=== PATIENT | male | born 1965 | race Two or more races ===

== ENCOUNTER 2022-12-28 01:38 | Emergency (ER) | payer OTHER ==
[~2022-12-28] VITALS: Ht 177.8 cm; Wt 125.0 kg
[2022-12-28 02:07] VITALS: BP 134/88
[2022-12-28] MEDS ORDERED: IBUPROFEN 400MG TABLET PO ONE (02:45)
[2022-12-28] MEDS ORDERED: NEOM28.43 TP (02:48)
[2022-12-28] MEDS ORDERED: CYCL5TAB MT (02:48)
== END 2022-12-28 03:57 | disposition home or self-care (01) ==
LOC: ER 01:38
DX: M25.512 Pain in left shoulder (principal); M25.562 Pain in left knee; M25.561 Pain in right knee; M79.642 Pain in left hand; I10 Essential (primary) hypertension
CPT/HCPCS: 73100; 73560; 99284

== ENCOUNTER 2024-12-18 17:10 | Inpatient (IN) | payer OTHER ==
[~2024-12-18] VITALS: Ht 165.1 cm; Wt 118.8 kg
[~2024-12-18 17:10] MED LIST: CYCL5TAB3 MT; NEOM28.43 TP
[2024-12-18 18:19] LABS: BASOPHILS % 1.6 % (0.0-2.0); EOSINOPHILS % 3.3 % (0.0-5.0); HEMATOCRIT. 42.3 % (42.0-52.0); HEMOGLOBIN. 14.9 g/dL (14.0-18.0); LYMPHOCYTES % 50.4 % (20.0-50.0); MEAN CORPUSCULAR HEMOGLOBIN 32.7 pg (28.0-32.0); MEAN CORPUSCULAR HGB CONC 35.2 g/dL (31.0-37.0); MEAN CORPUSCULAR VOLUME 93.1 fL (80.0-94.0); MEAN PLATELET VOLUME 8.7 fl (7.4-10.4); MONOCYTES % 9.4 % (2.0-8.0); NEUTROPHILS % 35.3 % (40.0-76.0); PLATELET 248 x1000/uL (130-400); RED BLOOD CELL COUNT 4.55 mill/uL (4.7-6.1); RED CELL DISTRIBUTION WIDTH 13.2 % (11.6-14.6); WHITE BLOOD COUNT 4.7 x1000/uL (4.5-11.0)
[2024-12-18 18:38] LABS: CHLORIDE 104 mEq/L (98-107); POTASSIUM 3.3 mEq/L (3.5-5.1); SODIUM 136 mEq/L (136-145)
[2024-12-18 18:39] LABS: CALCIUM 8.9 mg/dL (8.7-10.4); CARBON DIOXIDE 22 mEq/L (21-32)
[2024-12-18 18:43] LABS: AMMONIA 35 uMol/L (<32)
[2024-12-18 18:44] LABS: GLUCOSE 150 mg/dL (70-105); TROPONIN I HIGH SENSITIVITY 8 ng/L (3.0-53); UREA NITROGEN BLOOD 14 mg/dL (9-23)
[2024-12-18 18:45] LABS: ETHANOL BLOOD < 10 mg/dL (<10)
[2024-12-18 18:46] LABS: ACETAMINOPHEN < 2 ug/mL (10-30); ALANINE AMINOTRANSFERASE 24 IU/L (10-49); ALBUMIN 4.6 g/dL (3.2-4.8); ASPARTATE AMINOTRANSFERASE 27 IU/L (<34); BILIRUBIN DIRECT 0.7 mg/dL (<=3.0); BILIRUBIN TOTAL 2.1 mg/dL (0.1-1.0); CREATINE KINASE 290 IU/L (46-171); PROTEIN TOTAL 7.5 g/dL (6.0-8.3)
[2024-12-18 18:48] LABS: THYROID STIMULATING HORMONE 0.75 uIU/mL (0.55-4.78)
[2024-12-18 18:49] LABS: INR 1.1; PROTHROMBIN TIME 11.3 sec (9.6-11.0)
[2024-12-18 20:57] LABS: CLARITY URINE CLEAR (CLEAR); COLOR URINE YELLOW (YELLOW); GLUCOSE URINE NEGATIVE (NEGATIVE); KETONES URINE NEGATIVE (NEGATIVE); LEUKOCYTE ESTERASE URINE NEGATIVE (NEGATIVE); NITRITE URINE NEGATIVE (NEGATIVE); OCCULT BLOOD URINE NEGATIVE (NEGATIVE); PROTEIN URINE NEGATIVE (NEGATIVE); SPECIFIC GRAVITY URINE 1.026 (1.005-1.030); UROBILINOGEN URINE 0.2 E.U./dL (0.2-1.0)
[2024-12-18] MEDS: LACTULOSE 20G/30ML UDC PO ONE (20:59)
[2024-12-18 21:10] LABS: *AMPHETAMINES SCREEN URINE NEGATIVE (NEGATIVE); *BARBITURATES SCREEN URINE NEGATIVE (NEGATIVE); *BENZODIAZEPINES SCREEN URINE NEGATIVE (NEGATIVE); *COCAINE SCREEN URINE NEGATIVE (NEGATIVE); CANNABINOID URINE SCREEN PRESUMPTIVE POSITIVE (NEGATIVE); ECSTASY MDMA SCREEN URINE NEGATIVE (NEGATIVE); METHADONE URINE SCREEN NEGATIVE (NEGATIVE); OPIATES URINE SCREEN NEGATIVE (NEGATIVE); PHENCYCLIDINE URINE SCREEN NEGATIVE (NEGATIVE)
[2024-12-18] MEDS ORDERED: ONDANSETRON HCL 4MG/2ML INJ IV PRN (21:15)
[2024-12-18] MEDS ORDERED: ACETAMINOPHEN 325MG TABLET PO PRN (21:15)
[2024-12-18] MEDS ORDERED: IPRATROPIUM/ALBUTEROL 0.5-3(2.5)MG/3ML NEB HHN PRN (21:15)
[2024-12-18] MEDS ORDERED: CLONIDINE 0.1MG TABLET PO PRN (21:15)
[2024-12-18] MEDS ORDERED: MAGNESIUM/ALUMINUM HYDROXIDE/SIMETHICONE 30ML UDC PO PRN (21:15)
[2024-12-18] MEDS ORDERED: GUAIFENESIN 200MG/10ML SUGAR FREE UDC PO PRN (21:15)
[2024-12-18] MEDS ORDERED: DOCUSATE SODIUM 100MG CAPSULE PO PRN (21:15)
[2024-12-18] MEDS ORDERED: DEXTROSE 50% WATER 50ML SYRINGE IV PRN (21:15)
[2024-12-18 21:50] VITALS: BP 132/87; PULSE 64; RESP 18; TEMP 36.5; O2SAT 95
[2024-12-18] MEDS: DEXT 5%/0.9% NACL 1,000 ML IV ONE (22:33)
[2024-12-18] MEDS: POTASSIUM CHLORIDE 20MEQ/PACKET PO NR (22:33)
[2024-12-18] MEDS ORDERED: AMLOD/BENAZP PO (23:21)
[2024-12-18] MEDS ORDERED: ROSU20CA PO (23:21)
[2024-12-18 23:33] LABS: BG BASE EXCESS -0.5 mmol/L (-2.0-3.0); BG CARBOXYHEMOGLOBIN 1.3 % (0.5-1.5); BG DEOXYHEMOGLOBIN 5.2 % (0.0-5.0); BG FRACTION INSPIRED OXYGEN 21; BG HCO3 ACT 22.8 mmol/L (21.0-28.0); BG METHEMOGLOBIN 0.3 % (0.5-1.5); BG OXYGEN SATURATION 94.7 % (94.0-98.0); BG OXYHEMOGLOBIN 93.2 % (94.0-98.0); BG PCO2 33.8 mmHg (35.0-48.0); BG PH 7.447 (7.350-7.450); BG PO2 72.9 mmHg (83.0-108.0); BG SAMPLE SITE RIGHT RADIAL; BG TOTAL HEMOGLOBIN 15.1 g/dL (13.5-17.5); BG VENT MODE ROOM AIR
[2024-12-18] MEDS ORDERED: IOHEXOL-350 100 ML BOTTLE ONE (23:52)
[2024-12-19 04:00] VITALS: BP 133/87; PULSE 63; RESP 18; TEMP 36.4; O2SAT 95
[2024-12-19] MEDS: BLOOD SUGAR DIAGNOSTIC STRIP TEST SCH (06:46)
[2024-12-19] MEDS: INSULIN LISPRO 100 UNITS/ML SUBCUT SCH (07:50)
[2024-12-19 07:54] LABS: CHLORIDE 106 mEq/L (98-107); POTASSIUM 3.7 mEq/L (3.5-5.1); SODIUM 140 mEq/L (136-145)
[2024-12-19 07:55] LABS: CALCIUM 8.9 mg/dL (8.7-10.4); CARBON DIOXIDE 23 mEq/L (21-32)
[2024-12-19 07:56] LABS: BASOPHILS % 0.6 % (0.0-2.0); EOSINOPHILS % 2.1 % (0.0-5.0); HEMATOCRIT. 42.2 % (42.0-52.0); HEMOGLOBIN. 14.9 g/dL (14.0-18.0); LYMPHOCYTES % 35.3 % (20.0-50.0); MEAN CORPUSCULAR HEMOGLOBIN 33.2 pg (28.0-32.0); MEAN CORPUSCULAR HGB CONC 35.3 g/dL (31.0-37.0); MEAN CORPUSCULAR VOLUME 94.1 fL (80.0-94.0); MEAN PLATELET VOLUME 8.6 fl (7.4-10.4); MONOCYTES % 9.7 % (2.0-8.0); NEUTROPHILS % 52.3 % (40.0-76.0); PLATELET 219 x1000/uL (130-400); RED BLOOD CELL COUNT 4.49 mill/uL (4.7-6.1); RED CELL DISTRIBUTION WIDTH 13.1 % (11.6-14.6); WHITE BLOOD COUNT 5.6 x1000/uL (4.5-11.0)
[2024-12-19 08:00] VITALS: BP 123/63; PULSE 67; RESP 20; TEMP 36.4; O2SAT 96
[2024-12-19 08:00] LABS: GLUCOSE 124 mg/dL (70-105); TRIGLYCERIDE 55 mg/dL (0-150); UREA NITROGEN BLOOD 12 mg/dL (9-23)
[2024-12-19 08:01] LABS: LDL CHOLESTEROL 41 mg/dL (5-100)
[2024-12-19 08:02] LABS: CHOLESTEROL 95 mg/dL (<200); HDL CHOLESTEROL 35 mg/dL (>55)
[2024-12-19 08:03] LABS: T4 FREE 1.14 ng/dL (0.89-1.76)
[2024-12-19] MEDS: PANTOPRAZOLE SODIUM 40 MG/VIAL IV SCH (08:44)
[2024-12-19 12:00] VITALS: BP 123/76; PULSE 66; RESP 20; TEMP 36.4; O2SAT 97
[2024-12-19 16:00] VITALS: BP 133/87; PULSE 57; RESP 20; TEMP 34.9
[2024-12-19 18:10] VITALS: BP 122/62; PULSE 88; TEMP 97.8; O2SAT 98
== END 2024-12-19 21:20 | disposition home or self-care (01) | DRG 71 ==
LOC: ER 17:10 → EDBEDREQ 18:42 → 6WST 20:54 → EDBEDREQ 21:21 → EDBEDREQTM 21:21 → ENRESERV 21:26
PROVIDERS: ADMIT Internal Medicine; ATTEND Internal Medicine
DX: G93.41 Metabolic encephalopathy (principal); E72.20 Disorder of urea cycle metabolism, unspecified; J98.11 Atelectasis; E87.6 Hypokalemia; F12.929 Cannabis use, unspecified with intoxication, unspecified; E11.65 Type 2 diabetes mellitus with hyperglycemia; I11.9 Hypertensive heart disease without heart failure; E80.6 Other disorders of bilirubin metabolism; R16.2 Hepatomegaly with splenomegaly, not elsewhere classified; Z79.899 Other long term (current) drug therapy
CPT/HCPCS: 36415; 36600; 70496; 70498; 71045; 76700; 80048; 80061; 80076; 80305; 80307; 80320; 80329; 81003; 82140; 82375; 82550; 82805; 82962; 83036; 83605; 83735; 83880; 84439; 84443; 84484; 85025; 85379; 86850; 86900; 93005; 99285; J2470; Q9967; G0480